=== PATIENT | male | born 1960 | race Two or more races ===

== ENCOUNTER 2017-03-23 05:50 | Day surgery (SDC) | payer BC ==
[~2017-03-23] VITALS: Ht 165.1 cm; Wt 78.0 kg
--- NOTE | ~2017-03-23 | OP ---
PATIENT NAME: JANELL REYES MEDICAL RECORD: [id number] :64 LOCATION:D.OPS ADMISSION DATE: SURGEON: JORDY ALVARES MD DATE OF OPERATION: 03/23/2017 PREOPERATIVE DIAGNOSES: 1. Gallstones. 2. Gout. POSTOPERATIVE DIAGNOSES: 1. Gallstones. 2. Gout. PROCEDURE: Laparoscopic cholecystectomy. SURGEON: Jordy Alvares MD REPORT OF PROCEDURE: The patient's abdomen was prepped and draped in sterile fashion. A cutdown was made on the superior aspect of the umbilicus. Electrocautery was used to dissect through the subcutaneous tissues, 0 Vicryls were placed in the fascia bilaterally and the fascia was incised with 15-blade. I then bluntly entered the peritoneal cavity and placed a 12-mm Sherif port. Under direct visualization, a 5 mm trocar was placed in the epigastrium and 2 more 5-mm trocars were placed in the right subcostal region. The gallbladder was grasped and elevated. There were some inflammatory adhesions of the fatty tissue to the gallbladder and these were teased down carefully with blunt dissection. The cystic artery and cystic duct were dissected free and these were clipped proximally and distally and ligated in standard fashion. The gallbladder was taken off the liver bed using electrocautery and placed into the right upper quadrant. Any bleeding from the liver bed was treated with electrocautery. At this point, the ports and insufflation were then removed and the gallbladder was taken out through the umbilicus. The umbilical fascia was closed with interrupted 0 Vicryls times 3. The wounds were then irrigated out with normal saline and infused with 10 mL of 0.25% Marcaine with epinephrine. The skin incisions were all closed with subcutaneous 5-0 Monocryl and dressed appropriately. COMPLICATIONS: None. CONDITION: Stable. ANESTHESIA: General endotracheal and local. BLOOD LOSS: Minimal. TRANSINT:[id number] Voice Confirmation ID: [id number] DOCUMENT ID: [id number] OPERATIVE REPORT [id number] ERIC,JANELL Cathy JORDY ALVARES MD CC: AMADA [id number] DICTATION DATE: 03/23/17 0843 [place] TIER: 03/23/17 1037 REG [facility] [address] [place] [address]
[~2017-03-23 05:50] MED LIST: ZYLOPRIM100 MG PO
[2017-03-23 06:31] LABS: BASOPHILS 0.2 % (0-2); HEMATOCRIT 45.3 % (42.0-54.0); HEMOGLOBIN 15.3 g/dL (13.5-17.5); IMMATURE GRANULOCYTES 0.2 % (0-5); LYMPHOCYTES 23.3 % (15-50); MCH 26.2 pg (26.0-34.0); MCHC 33.8 g/dL (31.0-37.0); MCV 77.7 fL (80.0-100.0); MEAN PLATELET VOLUME 10.8 fL (7.4-10.4); MONOCYTES 5.4 % (2-11); NEUTROPHILS 68.9 % (40-80); PLATELET COUNT 168 10x3/uL (130-400); RBC 5.83 10x6/uL (4.20-6.10); RDW 12.9 % (11.5-14.5); WBC 5.5 10x3/uL (4.8-10.8)
[2017-03-23 06:52] LABS: ANION GAP 12.5 mmol/L (8-16); CALCIUM 9.2 mg/dL (8.5-10.1); CARBON DIOXIDE 28.3 mmol/L (21.0-32.0); CREATININE - SERUM 1.2 mg/dL (0.6-1.3); POTASSIUM - SERUM 3.8 mmol/L (3.5-5.1)
[2017-03-23 07:10] VITALS: BP 137/71; Ht 165.1 cm; Wt 78.0 kg
[2017-03-23] MEDS ORDERED: HYDROCODONE-APA1 TAB PO (08:40)
== END 2017-03-23 11:20 | disposition home or self-care (01) ==
LOC: D.OPS 05:50 → D.PAN 08:00 → D.OPS 11:20 → D.PAN 12:00 → D.OPS 12:00
PROVIDERS: Surgery
DX: K80.20 Calculus of gallbladder without cholecystitis without obstruction (principal); M10.9 Gout, unspecified; Z01.812 Encounter for preprocedural laboratory examination